=== PATIENT | male | born 1980 | race Caucasian/White ===

== ENCOUNTER 2024-05-10 12:32 | Emergency (ER) | payer BC, SELFPAY ==
[2024-05-10 12:40] VITALS: BP 136/92
[2024-05-10 13:05] LABS: % Basophils 0.6 % (0-2); % Eosinophils 1.9 % (0-6); % Immature Granulocytes 0.3 % (0-0.5); % Lymphocytes 35.2 % (20.5-51.1); Absolute Eosinophils 0.1 10^3/uL (0-0.7); Absolute Lymphocytes 2.5 10^3/uL (1.2-3.4); Absolute Monocytes 0.6 10^3/uL (0.1-0.6); Absolute Neutrophils 3.8 10^3/uL (1.4-6.5); Hematocrit 43.1 % (39.0-52.0); Hemoglobin 15.4 g/dL (13.0-18.0); Mean Corp Hgb Conc. 35.7 g/dL (33.0-37.0); Mean Corpuscular Hgb 30.6 pg (27.0-31.0); Mean Corpuscular Volume 85.5 fL (80.0-94.0); Mean Platelet Volume 11.4 fL (7.4-10.4); Nucleated Red Blood Cells % 0 % (-); Platelet Count 213 10^3/uL (130-400); Red Blood Cell Count 5.04 10^6/uL (4.70-6.10); Red Cell Dist. Width 13.1 % (11.5-14.5)
[2024-05-10 13:22] LABS: ALT (SGPT) 62 U/L (0-50); AST (SGOT) 41 U/L (17-59); Albumin 4.3 g/dl (3.5-5.0); Alkaline Phosphatase 62 U/L (38-126); Blood Urea Nitrogen 14 mg/dl (9-20); Calcium 10.2 mg/dl (8.4-10.2); Carbon Dioxide 29 mmol/L (22-30); Chloride 103 mmol/L (98-107); Glucose 98 mg/dl (70-99); Potassium 4.6 mmol/L (3.5-5.1); Sodium 139 mmol/L (135-145); Total Bilirubin 1.2 mg/dl (0.2-1.3); Total Protein 7.4 g/dl (6.3-8.2); eGFR > 60.00
[2024-05-10 13:25] LABS: Troponin I < 0.012 ng/ml
--- NOTE | 2024-05-10 15:14 | ED.GENMED ---
History of Present Illness
General
Chief Complaint: Heart Rate Problem
Time Seen by Provider: 05/10/24 15:14
History of Present Illness
History of Present Illness:
TIME OF INITIAL ENCOUNTER: 3:15 PM
HPI: The patient has multiple complaints and concerns. He initially told me that his symptoms started when he woke up around 1130 this morning but then checked his watch and thought he may have woken up at 830 this morning. He developed a
sensation in his head 'like his brain is trying to get out' and at other times states that 'like something is pushing in on my brain' however he denies any headache. He has pain in the left side of the chest with uncertain time of onset this
morning. He has a sensation in his abdomen, not described as pain, but rather like 'somebody kicked me in my junk'. He feels that there is something wrong but cannot describe it. He used to be on Xanax 2 mg 3 times a day but weaned off of it
about a year ago and is no longer on benzos.
EXAM:
GENERAL: Well appearing in no distress
HEENT: Moist oral mucosa
CARDIOVASCULAR: No murmurs, normal heart rate, regular rhythm, No chest wall tenderness
PULMONARY: No respiratory distress, breath sounds are clear and equal
ABDOMEN: Soft with no peritoneal signs, no tenderness
NEUROLOGIC: Excellent strength all extremities, no coordination deficits
PSYCHIATRIC: Appropriate mental status, normal insight and judgement, appears somewhat anxious
EXTREMITIES: Nontender, no edema, moves all extremities equally
SKIN: No rash, no lesions
NUMBER AND COMPLEXITY OF PROBLEMS ADDRESSED AT THE ENCOUNTER
� Chronic conditions affecting care: Anxiety
� Acute Exacerbation and/or Progression of Chronic Illness: This is an acute problem
� Differential Diagnosis includes: Anxiety, electrolyte abnormality, infection, pneumonia, pneumothorax
AMOUNT AND/OR COMPLEXITY OF DATA TO BE REVIEWED AND ANALYZED
� I performed an independent evaluation of and my interpretation is:
EKG: Sinus 63, left axis deviation, no acute ST abnormality
CT:
X-rays: Chest x-ray by my read shows no acute abnormality
Laboratory Studies: CBC and chemistries unremarkable however ALT minimally elevated at 62, troponin less than 0.012
Other:
� Review of other/old records: No old records available for review
� Clinical information was obtained by an independent historian: None needed
� Prescriptions/Medications Considered but not given:
� Further testing considered but not performed: Offered and considered CT imaging however the patient declines.
RISK OF COMPLICATIONS AND/OR MORBIDITY OR MORTALITY OF PATIENT MANAGEMENT
� Social determinants of health affecting care: Lives at home
� Discussion with other providers:
� Escalation of care including admission/observation vs risk of discharge considered: The patient tells me that he is known to Dr. Schmitt in [facility] who states that he had coronary calcium scoring which was normal within
the past 2 years or so. He states he had an echo that showed an aorta that measured 3.2 cm. He was concerned because his father had a thoracic aortic aneurysm. He has multiple complaints. Patient declined CT imaging. Blood work is reassuring.
Will check a second troponin.
ANY OTHER UPDATES:
4:35 PM: The patient is very well-appearing. Second troponin negative. BP spontaneously improved.
Past History
Past History
ED Past Medical History: Psychiatric (anxiety, manic episodes. On Propranolol and Xanax XR.) and Other (Psoriasis, colitis On Prilosec and Zantac)
Social History
Tobacco: Non-smoker
Personal: Single
Living: alone
Employment: Employed ([employer])
Phy Exam
Physical Exam
Physical Exam:
See HPI
Course
Orders/Labs/Results
Orders:
Orders
05/10/24 12:34
ECG [Electrocardiogram (*1)] Urgent
Reason for Study: Palpitations
EKG- Treatment ONCE
05/10/24 12:47
Complete Blood Count/With Diff Urgent
Comprehensive Metabolic Panel Urgent
Troponin I Urgent
05/10/24 15:28
CR Chest - 2 Views Urgent
Comment:
Reason For Exam: pain
05/10/24 15:29
Troponin I Urgent
Abnormal Lab Results
05/10/24
12:47
MPV 11.4 H fL
(7.4-10.4)
ALT 62 H U/L
(0-50)
05/10/24 12:47
05/10/24 12:47
Vital Signs
Initial and Last Documented VS:
Initial Vital Signs
Temp Pulse Resp BP Pulse Ox
36.8 C 73 16 136/92 96
05/10/24 12:40 05/10/24 12:40 05/10/24 12:40 05/10/24 12:40 05/10/24 12:40
Last Documented Vital Signs
Temp Pulse Resp BP Pulse Ox
36.8 C 62 22 116/72 95
05/10/24 12:40 05/10/24 15:45 05/10/24 15:45 05/10/24 16:00 05/10/24 15:45
*Critical Care Note
Total Time (30-74mins, 75-104mins- exclusive of procedures): Not Applicable
ED Attending Note
-
Portions of this chart may have been created with voice recognition software.� Occasional wrong word or��sound alike� substitutions may have occurred due to the inherent limitations of voice recognition software.
Discharge Plan
Departure
Patient Disposition: Home (Routine Discharge)
Date of Disposition: 05/10/24
Time of Disposition: 16:34
Patient with high blood pressure during this ER visit?: Yes
Discharge Problem:
Palpitations
Referrals:
Maxi Schmitt DO [Non-Admitting Privileges] - Follow up in 1 week
Ainsley Lambert NP [Family Provider] -
Activity Restrictions/Additional Instructions:
The cause of your symptoms is unclear. 2 cardiac blood tests were normal. Basic blood work is unremarkable. I do not see any abnormality on the chest x-ray. I recommend that you still follow-up with Dr. Schmitt. EKG is unremarkable. Return here
if worse or other concerns.
Interventions
Interventions:
*Risk Screen - Suicide Last Done: 05/10/24 12:40
*General Assessment Last Done: 05/10/24 15:22
*Neglect/Abuse Screening Last Done: 05/10/24 12:40
*ED- Fall Risk Assessment Last Done: 05/10/24 15:22
*ED COVID-19 Vaccine History Last Done: 05/10/24 15:22
ED- Cardiac Assessment Last Done: 05/10/24 15:21
ED- Pulmonary Assessment Last Done: 05/10/24 15:21
Discharge Date and Time
Print Language: HEBREW
[2024-05-10 15:22] VITALS: BP 143/91; BMI 34.9
[2024-05-10 16:00] VITALS: BP 116/72
[2024-05-10 16:06] LABS: Troponin I < 0.012 ng/ml
[2024-05-10 16:40] VITALS: BP 131/77
== END 2024-05-10 16:45 | disposition home or self-care (01) ==
LOC: EMR 12:32
PROVIDERS: Emergency Medicine; EMERGENCY PHYSICIAN Emergency Medicine; FAMILY PHYSICIAN Nurse Practitioner Family
DX: R07.89 Other chest pain (principal); F41.9 Anxiety disorder, unspecified
CPT/HCPCS: 99283; 71046; 80053; 84484; 85025; 93005